=== PATIENT | female | born 1965 | race Caucasian/White ===

== ENCOUNTER → 2025-03-01 | Outpatient (CLI) | payer BC, SELFPAY ==
--- NOTE | 2025-03-01 12:47 | RAD_ITS ---
PROCEDURE: KNEE 4 OR MORE VIEWS 03/01/2025 REASON FOR EXAM: L KNEE PAIN TECHNIQUE: 4 view(s) of the left knee COMPARISON: None available FINDINGS: No fracture or dislocation. Gssys-up-jpndhckp joint effusion suggested. The joint spaces appear within limits. No osseous lesion identified. RAD/Knee 4 or More Views IMPRESSION: No fracture or dislocation. Qhqdm-zp-ireacgoc joint effusion suggested. Reading Location: [id number]
[2025-03-01 15:59] LABS: ALB/GLOB Ratio 1.5 RATIO (0.9-2.4); AST(SGOT) 17 U/L (<=31); Alanine Aminotransfer ALT/SGPT 18 U/L (<=34); Albumin, Serum 4.4 g/dL (3.4-4.8); Alkaline Phosphatase 74 U/L (35-104); Anion Gap 11 (5-15); BUN 10 mg/dL (4-19); BUN/Creat Ratio 13.7 RATIO (10-20); CORTISOL AM 7.53 ug/dL (6.02-18.40); Calcium,Total 9.6 mg/dL (7.6-11.0); Carbon Dioxide 25.5 mmol/L (21.0-32.0); Chloride 104 mmol/L (98-108); Cholesterol 161 mg/dL (<=200); Creatinine, Serum 0.69 mg/dL (0.70-1.20); EST Glomerular Filtration Rate 99 (>60); Free T3 3.1 pg/mL (2.18-3.98); Globulin 2.9 g/dL (2.2-4.2); Glucose 87 mg/dL (70-99); High Density Lipoprotein 63 mg/dL; Low Density Lipoprotein Calc. 66 mg/dL; Potassium 4.1 mmol/L (3.3-5.1); Protein, Total 7.3 g/dL (5.9-8.4); Sodium Level 140 mmol/L (133-145); Total Bilirubin 0.41 mg/dL (0.00-1.30); Triglycerides 162 mg/dL; Very Low Density Lipoprotein 32 mg/dL (5-40); cholesterol:hdl ratio screen 2.58
[2025-03-03 04:07] LABS: Thyroid Peroxidase AB < 9 IU/mL (0-34)
== END | disposition home or self-care (01) ==
LOC: MTLAB 12:44
PROVIDERS: PCP Family Medicine; Referring Provider Family Medicine; Visit Provider Family Medicine
DX: Z13.1 Encounter for screening for diabetes mellitus (principal); E07.9 Disorder of thyroid, unspecified; M25.562 Pain in left knee; E66.9 Obesity, unspecified
CPT/HCPCS: 36415; 73564; 80053; 80061; 82533; 83036; 84439; 84443; 84481; 86376